=== PATIENT | female | born 1990 | race Caucasian/White ===

== ENCOUNTER 2022-03-13 18:14 | Emergency (ER) | payer SELFPAY ==
[2022-03-13 18:20] VITALS: BP 102/76; PULSE 92; RESP 20; TEMP 36.5; O2SAT 99
[2022-03-13 18:21] VITALS: BP 102/76; PULSE 93; RESP 16; TEMP 36.5; O2SAT 96
--- NOTE | 2022-03-13 18:21 | ED.EAR ---
HPI - Ear Problem General Stated complaint: right ear infection Time Seen by Provider: 03/13/22 18:20 Source: patient and RN notes reviewed Limitations: no limitations History of Present Illness Complaint: ear pain Location: bilateral Duration: constant Severity: moderate Relieving factors: nothing Exacerbating factors: nothing Discharge from ear: Reports no Associated symptoms ear: decreased hearing (Greater on the right) Treatment prior to arrival: none Related Data Home Medications Medication Instructions Recorded Confirmed escitalopram oxalate 10 mg tablet 10 mg PO DAILY 03/13/22 03/13/22 Allergies Allergy/AdvReac Type Severity Reaction Status Date / Time No Known Allergies Allergy Verified 03/13/22 18:34 Review of Systems Review of Systems: All systems reviewed & are unremarkable except as noted in HPI and below Constitutional: Constitutional: Denies chills and Denies fever(s) PMFSH Past Medical History Medical History (Updated 03/13/22 @ 18:35 by Goran Colmenares MD) Anxiety and depression Surgical History Surgical History (Updated 03/13/22 @ 18:25 by Goran Colmenares MD) No pertinent past surgical history Social History Social History (Updated 03/13/22 @ 18:25 by Goran Colmenares MD) Smoking status: Current every day smoker Alcohol intake: never Substance use: never Exam Const: General: healthy appearing, no acute distress and alert Nutritional Appearance: well nourished Orientation/consciousness: patient oriented x3 Limitations: no limitations Other: female nurse in room during examination. HENMT: Head: normal to inspection Ears: external ears normal and TM's normal bilaterally ( Right TM is just a little dull compared to the left otherwise normal ) Face and sinus: normal facial exam Eyes: Conjunctivae: conjunctivae normal Pupils: Equal, round and reactive pupils present EOM: EOMs intact bilaterally Neck: Neck: normal visual inspection and no lymphadenopathy Chest: Chest palpation & inspection: normal inspection of the chest Resp: Effort & Inspection: normal respiratory effort Auscultation: clear to auscultation bilaterally Cardio: Rate: regular rate Rhythm: regular rhythm GI: GI Palp: Yes Soft to palpation and No Tenderness to palpation present (GI) Auscultation: normal bowel sounds Back/Spine/Pelvis: Cervical Spine: cervical ROM normal Thoracic/Lumbar Spine: thoraco-lumbar ROM normal Skin: General skin exam: normal color Rashes: no rashes Neuro: General: patient oriented x3, no focal motor deficits and CN's II-XI intact bilaterally Speech: normal speech Gait exam (Neuro): Normal gait present Extrem: General: normal to inspection and no clubbing, cyanosis or edema Psych: Mental Status: mental status grossly normal Affect: normal affect Attitude: cooperative Discharge Plan Discharge Clinical Impression: Acute dysfunction of right eustachian tube Patient Disposition: Home, Self-Care Condition: Stable Instructions: Fluid In The Ear (Serous Otitis Media) (ED) Additional Instructions: use [id number] decongestants. Prescriptions: No Action escitalopram oxalate 10 mg Tablet 10 mg PO DAILY Follow-up/Referrals: UNKNOWN,DOCTOR [Primary Care Provider] - Time of Disposition: 18:35
[2022-03-13 18:36] VITALS: BP 102/76; PULSE 92; RESP 20; TEMP 36.5; O2SAT 97
--- NOTE | 2022-03-13 18:37 | PC.NURSE ---
Assisted with patient exam.
== END 2022-03-13 18:40 | disposition home or self-care (01) ==
LOC: CHSED 18:44
PROVIDERS: Emergency Provider Emergency Medicine
DX: H69.91 Unspecified Eustachian tube disorder, right ear (principal)
CPT/HCPCS: 99281